=== PATIENT | male | born 1980 | race Caucasian/White ===

== ENCOUNTER 2021-09-30 12:35 | Emergency (ER) | payer BC ==
[2021-09-30 14:00] LABS: HEMOGLOBIN 15.7 gm/dl (14.0-17.5); RED BLOOD COUNT 5.15 M/UL (4.20-5.50); WHITE BLOOD COUNT 9.3 K/UL (4.5-11.0)
[2021-09-30 14:24] LABS: BUN/CREATININE RATIO 12 (0-10)
[2021-09-30] MEDS ORDERED: ONDANSETRON ODT4 MG SL (17:06)
[2021-09-30] MEDS ORDERED: FLOMAX 0.4 MG0.4 MG PO (17:06)
[2021-09-30] MEDS ORDERED: TORADOL 10 MG T10 MG PO (17:06)
== END 2021-09-30 17:40 | disposition home or self-care (01) ==
LOC: ER1 12:35
PROVIDERS: Physician Assistant
DX: I48.91 Unspecified atrial fibrillation (principal); N20.1 Calculus of ureter; I10 Essential (primary) hypertension; Z88.2 Allergy status to sulfonamides
CPT/HCPCS: 71045; 80053; 81001; 82550; 82553; 83874; 84439; 84443; 84484; 85025; 85610; 93005; 93242; 99285

== ENCOUNTER 2021-10-16 12:03 | Observation (INO) | payer BC ==
[~2021-10-16] VITALS: Ht 182.9 cm; Wt 102.1 kg
[~2021-10-16 12:03] MED LIST: FLOMAX 0.4 MG0.4 MG PO; ONDANSETRON ODT4 MG SL; TORADOL 10 MG T10 MG PO
[2021-10-16 13:31] LABS: HEMOGLOBIN 16.4 gm/dl (14.0-17.5); RED BLOOD COUNT 5.17 M/UL (4.20-5.50); WHITE BLOOD COUNT 7.4 K/UL (4.5-11.0)
[2021-10-16 14:07] LABS: BUN/CREATININE RATIO 11 (0-10)
[2021-10-17 04:01] LABS: RED BLOOD COUNT 4.74 M/UL (4.20-5.50); WHITE BLOOD COUNT 8.4 K/UL (4.5-11.0)
[2021-10-17 04:27] LABS: BUN/CREATININE RATIO 16 (0-10)
[2021-10-17] MEDS ORDERED: ASPIRIN EC81 MG PO (12:33)
[2021-10-17] MEDS ORDERED: CARVEDILOL25 MG PO (12:33)
== END 2021-10-17 16:25 | disposition home or self-care (01) ==
LOC: ER1 12:03 → PROG CARE 15:00 → CDU 15:00 → PROG CARE 15:00
PROVIDERS: Family Medicine; Physician Assistant; ADMIT Internal Medicine
DX: I48.0 Paroxysmal atrial fibrillation (principal); T43.615A Adverse effect of caffeine, initial encounter; R07.89 Other chest pain; Z88.2 Allergy status to sulfonamides; Z82.49 Family history of ischemic heart disease and other diseases of the circulatory system; J98.11 Atelectasis; I11.9 Hypertensive heart disease without heart failure; I07.1 Rheumatic tricuspid insufficiency; Z20.822 Contact with and (suspected) exposure to COVID-19
CPT/HCPCS: ECHO; 36415; 71045; 80048; 80053; 80061; 82550; 82553; 83605; 83735; 83874; 83880; 84439; 84443; 84484; 85025; 85610; 85730; 93005; 93306; J1644; U0002